=== PATIENT | female | born 1970 | race Caucasian/White ===

== ENCOUNTER 2021-12-06 14:22 | Emergency (ER) | payer OTHER ==
[~2021-12-06] VITALS: Ht 167.6 cm; Wt 74.8 kg
[2021-12-06] MEDS: ALBUTEROL INHALER 90MCG/INH IH PRN ×2 (14:57→15:47)
[2021-12-06] MEDS ORDERED: ACETAMINOPHEN 500 MG TABLET PO ONE (15:00)
[2021-12-06] MEDS ORDERED: GUAIFENESIN-DM 200/20 MG 10 ML PO ONE (15:00)
[2021-12-06] MEDS ORDERED: ALBU8.5H8 IH (16:47)
[2021-12-06] MEDS ORDERED: D-ME1POW16 PO (16:47)
[2021-12-06 16:49] VITALS: BP 101/66
== END 2021-12-06 17:04 | disposition home or self-care (01) ==
LOC: EDH 14:22
DX: U07.1 COVID-19 (principal); B34.9 Viral infection, unspecified; J44.9 Chronic obstructive pulmonary disease, unspecified; E10.9 Type 1 diabetes mellitus without complications; Z88.8 Allergy status to other drugs, medicaments and biological substances; Z88.5 Allergy status to narcotic agent; Z79.899 Other long term (current) drug therapy; Z98.890 Other specified postprocedural states
CPT/HCPCS: 71045; 87635; 87804 ×2; 99284; C9803